=== PATIENT | female | born 1995 | race Two or more races ===

== ENCOUNTER → 2021-02-24 | Outpatient (CLI) | payer BC ==
--- NOTE | 2021-02-25 15:26 | US ---
EXAMINATION TYPE: US kidneys/renal and bladder DATE OF EXAM: 02/24/2021 COMPARISON: NONE CLINICAL HISTORY: N39.0 UTI. Frequent UTI's EXAM MEASUREMENTS: Right Kidney: 10.4 x 4.1 x 5.3 cm Left Kidney: 10.9 x 4.4 x 5.5 cm Right Kidney: No hydronephrosis or masses seen Left Kidney: No hydronephrosis or masses seen Bladder: wnl Bilateral Jets seen: Yes IMPRESSION: Normal renal ultrasound
== END | disposition home or self-care (01) ==
LOC: RADUSWWP 16:44
PROVIDERS: ATTEND Urology
DX: N39.0 Urinary tract infection, site not specified (principal)
CPT/HCPCS: 76770

== ENCOUNTER → 2022-09-06 | Outpatient (CLI) | payer BC ==
--- NOTE | 2022-09-06 13:18 | CT ---
EXAMINATION TYPE: CT wrist LT wo con, CT wrist RT wo con CT DLP: 131.6 mGycm, Automated exposure control for dose reduction was used. DATE OF EXAM: 09/06/2022 12:04 PM COMPARISON: Wrist radiograph 06/03/2022 CLINICAL INDICATION:Female, 26 years old with history of PAIN/WRIST; PHH, left wrist pain (accession [id number]), eval of right wrist (accession [id number]) TECHNIQUE: Axial images were obtained of the bilateral wrists . Additional coronal and sagittal refo rmatted images and soft tissue and bone window were obtained for review. 3-D reconstruction was creat ed on a separate workstation. Contrast used: mL of , Oral contrast used: None FINDINGS: Post fixation changes to the distal left radius. Hardware appears intact. No acute fracture visualize d. There is good osseous remodeling at the fracture site with good fusion of the osseous structures. The alignment appears similar to the contralateral right side. No evidence of acute right-sided fract ure. The soft tissues bilaterally are within normal limits. IMPRESSION: Post fixation changes to the left distal wrist with hardware intact. Overall alignment appears approp riate with near similar alignment compared to the contralateral side. No acute fractures.
== END | disposition home or self-care (01) ==
LOC: RADCTMAIN 08:12
PROVIDERS: ATTEND Orthopaedic Surgery Hand Surgery
DX: S52.552D Other extraarticular fracture of lower end of left radius, subsequent encounter for closed fracture with routine healing (principal); S52.512D Displaced fracture of left radial styloid process, subsequent encounter for closed fracture with routine healing; M25.332 Other instability, left wrist